=== PATIENT | male | born 1955 | race Caucasian/White ===

== ENCOUNTER 2018-03-28 05:27 | Day surgery (SDC) | payer BC ==
[2018-03-26 09:28] LABS: BASOPHILS # (AUTO) 0.1 K/uL (0.0-0.2); BASOPHILS % (AUTO) 0.8 % (0.0-2.0); CALCIUM 9.9 mg/dL (8.4-11.0); CREATININE 0.88 mg/dL (0.55-1.30); EOSINOPHILS # (AUTO) 0.3 K/uL (0.0-0.4); EOSINOPHILS % (AUTO) 4.2 % (0.0-4.0); HEMATOCRIT 48.6 % (36-54); MEAN CORPUSCULAR HEMOGLOBIN 31 pg (27-31); MEAN CORPUSCULAR HGB CONC 33 % (32-36); MEAN CORPUSCULAR VOLUME 92 fL (79.0-98.0); MONOCYTES # (AUTO) 0.8 K/uL (0.0-1.0); MONOCYTES % (AUTO) 11.6 % (1.7-9.3); NEUTROPHILS # (AUTO) 3.6 K/uL (1.8-7.7); NEUTROPHILS % (AUTO) 54.4 % (40.0-70.0); PLATELET COUNT (AUTO) 181 K/uL (130-430); POTASSIUM 4.8 mmol/L (3.5-5.1); RED BLOOD CELL COUNT(AUTO) 5.26 MIL/uL (4.2-6.2); RED CELL DISTRIBUTION WIDTH 12.7 % (9.0-15.0); WHITE BLOOD COUNT (AUTO) 6.8 K/uL (4.8-10.8)
[2018-03-26 09:29] LABS: PROTHROMBIN TIME 10.2 SECS (9.5-12.5)
[2018-03-26 09:34] LABS: ALBUMIN 4.2 g/dL (3.4-4.8); TOTAL BILIRUBIN 0.6 mg/dL (0.0-1.0)
[~2018-03-28] VITALS: Ht 182.9 cm; Wt 108.9 kg
[2018-03-28] MEDS ORDERED: LR 1,000 ML IV SCH (07:53)
[2018-03-28] MEDS ORDERED: MORPHINE 4 MG/ML INJ. SYRINGE IVP PRN ×3 (08:00)
[2018-03-28] MEDS ORDERED: METOCLOPRAMIDE HCL 10 MG/2 ML VIAL IVP PRN (08:00)
[2018-03-28] MEDS ORDERED: NS IRRIG SOLN 1000 ML IR ONE (08:35)
[2018-03-28] MEDS ORDERED: ONDANSETRON HCL 4 MG/2 ML VIAL ONE (08:35)
[2018-03-28] MEDS ORDERED: fentaNYL CITRATE 250 MCG/5 ML AMP ONE (08:35)
[2018-03-28] MEDS ORDERED: LIDOCAINE 1% 10 MG/ML, 20 ML MDV ONE (08:35)
[2018-03-28] MEDS ORDERED: ROCURONIUM BROMIDE 10 MG/ML (ZEMURON) ONE (08:35)
[2018-03-28] MEDS ORDERED: MIDAZOLAM HCL 5 MG/ML VIAL (VERSED) IV ONE (08:35)
[2018-03-28] MEDS ORDERED: SEVOFLURANE 15 MIN GAS INH ONE (08:35)
[2018-03-28] MEDS ORDERED: LR 1,000 ML IV.SOLN IV ONE (08:35)
[2018-03-28] MEDS ORDERED: CEFAZOLIN 2 GM IVPB PREMIX 50 ML IV ONE (08:35)
[2018-03-28] MEDS ORDERED: PROPOFOL 200MG/ 20ML VIAL (DIPRIVAN) IV ONE (08:35)
[2018-03-28] MEDS ORDERED: MORPHINE 4 MG/ML INJ. SYRINGE ONE (08:47)
[2018-03-28 14:42] VITALS: BP_SYST 141
== END 2018-03-28 10:18 | disposition home or self-care (01) ==
LOC: SDS 05:27 → SMU 09:24 → SDS 10:18
PROVIDERS: ATTEND Specialist
DX: K42.0 Umbilical hernia with obstruction, without gangrene (principal); I10 Essential (primary) hypertension; E11.9 Type 2 diabetes mellitus without complications; E66.01 Morbid (severe) obesity due to excess calories; G47.33 Obstructive sleep apnea (adult) (pediatric); E11.40 Type 2 diabetes mellitus with diabetic neuropathy, unspecified; H40.9 Unspecified glaucoma; M19.90 Unspecified osteoarthritis, unspecified site; Z98.890 Other specified postprocedural states; Z79.899 Other long term (current) drug therapy; Z79.01 Long term (current) use of anticoagulants
CPT/HCPCS: 36415; 49587; 71046; 80053; 82962; 85025; 85610; 85730; 88305; 93005; C1781; J0690; J2001; J2250; J2270; J2405; J2704; J3010; J7120